=== PATIENT | male | born 1960 | race African-American/Black ===

== ENCOUNTER 2017-06-27 14:36 | Emergency (ER) | payer OTHER ==
[~2017-06-27] VITALS: Ht 180.3 cm; Wt 86.0 kg
[2017-06-27] MEDS ORDERED: LACTATED RINGERS 1,000 ML IV STA ×2 (16:58→19:15)
[2017-06-27 17:26] LABS: BASOPHILS % 0.6 % (0.0-2.0); CHLORIDE 102 mEq/L (98-107); EOSINOPHILS % 2.9 % (0.0-5.0); HEMATOCRIT. 36.7 % (42.0-52.0); HEMOGLOBIN. 11.7 g/dL (14.0-18.0); LYMPHOCYTES % 12.4 % (20.0-50.0); MEAN CORPUSCULAR HEMOGLOBIN 24.6 pg (28.0-32.0); MEAN CORPUSCULAR VOLUME 77.1 fL (80.0-94.0); MEAN PLATELET VOLUME 9.6 fl (7.4-10.4); MONOCYTES % 6.3 % (2.0-8.0); NEUTROPHILS % 77.8 % (40.0-76.0); PLATELET 208 x1000/uL (130-400); RED BLOOD CELL COUNT 4.77 mill/uL (4.7-6.1); RED CELL DISTRIBUTION WIDTH 13.7 % (11.6-14.6)
[2017-06-27] MEDS ORDERED: PIPERACILLIN/TAZ 3.375G PREMIX 50 ML IV ONE (17:30)
[2017-06-27] MEDS ORDERED: TETANUS, DIPHTHERIA, PERTUSSIS VAC/PF 0.5ML (>7YR OLD) IM ONE (17:30)
[2017-06-27] MEDS ORDERED: VANCOMYCIN 1 G PREMIX 200 ML IV ONE (17:30)
[2017-06-27] MEDS ORDERED: KETOROLAC 15MG/ML VIAL IV ONE (17:30)
[2017-06-27 17:33] LABS: BETA HYDROXYBUTYRATE 0.1 mMol/L (0.0-0.3)
[2017-06-27 17:56] LABS: PARTIAL THROMBOPLASTIN TIME 27.8 sec (23.4-31.0); PROTHROMBIN TIME 10.6 sec (9.4-11.6)
[2017-06-27 21:04] VITALS: BP 159/95
== END 2017-06-27 21:37 | disposition short-term general hospital (02) ==
LOC: ER 16:34
DX: S61.219A Laceration without foreign body of unspecified finger without damage to nail, initial encounter (principal); L02.511 Cutaneous abscess of right hand; M65.9 Synovitis and tenosynovitis, unspecified; I10 Essential (primary) hypertension; E11.65 Type 2 diabetes mellitus with hyperglycemia; F17.200 Nicotine dependence, unspecified, uncomplicated; W26.0XXA Contact with knife, initial encounter; Y93.89 Activity, other specified; Y99.8 Other external cause status; Y92.89 Other specified places as the place of occurrence of the external cause
CPT/HCPCS: 36415; 71045; 73140; 80048; 82010; 82962; 85025; 85610; 85730; 87040; 90471; 90715; 93005; 96361; 96365; 96366; 96367; 96375; 99285; J1885; J2543; J3370; J7120; Z7610